=== PATIENT | male | born 2005 | race Caucasian/White ===

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

== ENCOUNTER → 2023-08-31 16:52 | Outpatient (BNVA) | payer OTHER, SELFPAY | PROVIDERS: PCP Family Medicine; Visit Provider Family Medicine | DX: R50.9 Fever, unspecified (principal); J02.9 Acute pharyngitis, unspecified | CPT/HCPCS: 87071; 87880 ==

== ENCOUNTER → 2024-08-08 15:27 | Outpatient (BNVA) | payer OTHER, SELFPAY | PROVIDERS: PCP Family Medicine; Visit Provider Nurse Practitioner Family | DX: R73.03 Prediabetes (principal); Z72.51 High risk heterosexual behavior | CPT/HCPCS: 80053; 80061; 83036; 84443; 85025; 87491; 87591; 87661 ==

== ENCOUNTER 2024-12-25 10:43 | Emergency (ER) | payer OTHER, SELFPAY ==
[2024-12-25 10:50] VITALS: BP 122/77; PULSE 124; RESP 18; TEMP 37.6; O2SAT 95; BMI 52.7
--- NOTE | 2024-12-25 11:18 | ED_ITS ---
HPI - Nausea/Vomiting/Diarrhea 2 General: Chief complaint: Nausea/Vomiting/Diarrhea Stated complaint: n/v/d/f, abd pain, bloody stool Time Seen by Provider: 12/25/24 10:47 History of Present Illness: Chief complaint is nausea and diarrhea. Patient states that on Tuesday patient started having watery diarrhea. Tuesday had 8 episodes of watery diarrhea and then 7 on Tuesday and 6 yesterday. Patient feels diarrhea may be gradually getting a little better. Patient states some generalized abdominal pain and bloating feeling after eating. Patient uncertain about fever. Patient states that patient may have mild fever. No dysuria. Vomited 1 time a small amount this morning. No black or bloody stools or black or bloody emesis however patient states that sometimes when wiping will get a little red blood on the toilet paper. Stools are sometimes green and sometimes yellow. No foreign travel or recent antibiotic use or history of C. difficile. Related Data Previous Rx's ?Medication ?Instructions ?Recorded azithromycin 500 mg tablet 1,000 mg (2 x 500 mg) PO ON CE 1 12/25/24 day #2 tabs ondansetron 4 mg disintegrating 4 mg PO Q8H PRN nausea and 12/25/24 tablet vomiting 4 days #10 tabs Allergies Allergy/AdvReac Type Severity Reaction Status Date / Time No Known Allergies Allergy Verified 12/25/24 10:05 [facility] ED 2 [facility]: Medical History (Updated 12/25/24 @ 13:18 by Steve Diana MD) Psychiatric care Pneumonia due to COVID-19 virus Obesity COVID-19 Social History Smoking and tobacco/nicotine status: never used tobacco/nicotine Alcohol intake: never Physical Exam 2 Narrative: EXAM NARRATIVE: Patient is alert oriented in no acute distress. Normal conjunctiva, pupils equal and reactive, neck is supple, clear speech, no rash on exposed areas, heart is regular rhythm with mild tachycardia, lung sounds are clear. Patient has some mild generalized abdominal tenderness. No guarding or rebound. Negative Venegas's. No focal McBurney point tenderness. Extremities warm well- perfused. No calf tenderness or pitting edema. Speech is clear. Shows ability to reason. No suicidal homicidal thoughts Course 2 Vital Signs: Vital signs: Vital Signs Temperature 99.6 F 12/25/24 10:50 Pulse Rate 108 H 12/25/24 12:00 Respiratory Rate 20 H 12/25/24 12:00 Blood Pressure 118/62 12/25/24 12:00 Pulse Oximetry 95 12/25/24 12:00 Oxygen Delivery Me thod Room Air 12/25/24 10:50 MDM - Nausea/Vomiting/Diarrhea Medical Decision Making Patient sitting up alert talkative in no acute distress. Patient has temperature in the 99's here and mildly tachycardic although in the room heart rate was 105. Patient initially refused IV and declined labs. Patient however has some generalized abdominal tenderness has some mild tachycardia and mild temperature elevation and I recommended that we do IV fluid and check labs. After second time discussing with the patient patient agreed and I ordered 1 L normal saline IV fluid bolus CBC CMP and lipase. Patient denies urinary symptoms. Denies substance abuse. Patient states they have a history of migraines and had a headache on Tuesday but no headache since. Denies trauma or injury. Denies recent antibiotic use foreign travel or bad food or water exposure or known sick contact. Patient denies having any medical problems other than depression and anxiety. Patient's abdominal exam is benign with generalized symptoms. Infectious diarrhea most probable cause, infectious colitis also considered with the generalized abdominal pain and tenderness. Patient has no focal right lower quadrant tenderness or pain to suggest acute appendicitis and clearly has significant diarrheal component. I advised patient balance risk and benefit of antibiotic use and importance of hydration and checking electrolytes for dehydration and electrolyte imbalance and importance of oral hydration including electrolytes. Patient wants continued outpatient management. I advised limits of ED evaluation and signs symptoms of worsening watch and return for. I ordered Zofran 4 mg IV and acetaminophen 650 mg p.o. Advised to come back if worsening or concerning abdominal pain, black or bloody stools, vomiting blood, getting dehydrated or weak, unable to keep up on electrolytes and fluid, persistent symptoms or any worsening. Patient's diarrhea has gradually been improving each day has had little bit less. Advised I will prescribe 1 g of azithromycin to take tomorrow if does not continue improving. Advised we will also prescribe Zofran as needed for nausea. Patient alert talkative no acute distress in agreement with plan after informed discussion and understands signs and symptoms of worsening to watch and return for. Patient mother now here. Patient states feeling much better. Patient was sleeping and wakes to voice. White count is elevated. Bicarb low. Potassium was not significant low. Lipase not elevated. I discussed with mother at length signs symptoms of worsening watch and return for limits of ED evaluation broad differential. I discussed doing CT scan versus observation and at this point based on exam history and symptoms reasonable to continue oral hydration with 1 g of azithromycin tomorrow if the diarrhea is not improving. However with the pain advised to come back if worsening pain or if patient develops vomiting or unable to keep fluid down or increased weakness or bloody stools or any worsening. Patient and mother expressed understanding and agreement with plan. Patient states feeling improved and ready to go. Lab Data 12/25/24 11:37 12/25/24 11:37 Laboratory Results WBC 14.34 10^3/uL (3.29-11.43) H 12/25/24 11:37 RBC 4.98 10^6/uL (3.85-5.65) 12/25/24 11:37 Hgb 13.80 g/dL (11.27-16.99) 12/25/24 11:37 Hct 42.5 % (37-53) 12/25/24 11:37 MCV 85.3 fl (82-101) 12/25/24 11:37 MCH 27.7 pg (27-33) 12/25/24 11:37 MCHC 32.5 g/dL (30-55) 12/25/24 11:37 RDW 12.8 % (12.1-15.1) 12/25/24 11:37 Plt Count 277 10^3/cmm (157-399) 12/25/24 11:37 MPV 9.0 fL (7.4-10.4) 12/25/24 11:37 Neut % (Auto) 88.9 % 12/25/24 11:37 Lymph % (Auto) 5.3 % 12/25/24 11:37 [place] % (Auto) 5.2 % 12/25/24 11:37 Eos % (Auto) 0.0 % 12/25/24 11:37 Baso % (Auto) 0.2 % 12/25/24 11:37 Neut # (Auto) 12.75 10^3/uL (1.8-7.7) H 12/25/24 11:37 Lymph # (Auto) 0.8 10^3/uL (0.8-4.8) 12/25/24 11:37 [place] # (Auto) 0.7 10^3/uL (0.2-0.9) 12/25/24 11:37 Eos # (Auto) 0.0 10^3/uL (0.0-0.8) 12/25/24 11:37 Baso # (Auto) 0.0 10^3/uL (0.0-0.1) 12/25/24 11:37 Nucleated RBC % (auto) 0 % 12/25/24 11:37 Nucleated RBCs # 0.0 /100WBC 12/25/24 11:37 Sodium 135 mmol/L (136-145) L 12/25/24 11:37 Potassium 4.2 mmol/L (3.5-5.1) 12/25/24 11:37 Chloride 101 mmol/L (98-107) 12/25/24 11:37 Carbon Dioxide 20 mmol/L (22-29) L 12/25/24 11:37 Anion Gap 18.2 (5-19) 12/25/24 11:37 BUN 7 mg/dL (6-20) 12/25/24 11:37 Creatinine 0.7 mg/dL (0.7-1.2) 12/25/24 11:37 GFR Calculation 142.4 mL/min (90-130) H 12/25/24 11:37 Glucose 106 mg/dL (65-115) 12/25/24 11:37 Calculated Osmolality 278 mOsm/kg (285-295) L 12/25/24 11:37 Calcium 9.2 mg/dL (8.5-10.5) 12/25/24 11:37 Total Bilirubin 0.3 mg/dL (0.15-1.2) 12/25/24 11:37 AST 14 U/L (0-40) 12/25/24 11:37 ALT 17 U/L (0-41) 12/25/24 11:37 Alkaline Phosphatase 54 U/L (40-130) 12/25/24 11:37 Total Protein 7.5 g/dL (6.6-8.7) 12/25/24 11:37 Albumin 4.3 g/dL (3.5-5.2) 12/25/24 11:37 Globulin 3.2 g/dL (1.3-4.6) 12/25/24 11:37 Lipase 12 U/L (13-60) L 12/25/24 11:37 All radiology interpretation(s) finalized by discharge Discharge Plan Discharge Patient Disposition: Home Clinical Impression: Acute diarrhea Condition: Stable Prescriptions: New azithromycin 500 mg tablet 1,000 mg PO ONCE 1 Days Qty: 2 0RF ondansetron 4 mg tablet,disintegrating 4 mg PO Q8H PRN (Reason: nausea and vomiting) 4 Days Qty: 10 0RF Discharge Orders: Discharge ED (Routine); Ordered 12/25/24 Ordered By: Steve Diana Referrals: Rubina Crawford FNP-C [Primary Care Provider, Family Practice] Discharge Diet: Advance as tolerated Activity Restrictions/Additional Instructions: No work until diarrhea has resolved for a full 24 hours. Make sure to drink plenty of fluids including electrolytes as discussed. Please return to the emergency department if not getting better, any worsening pain, fever, vomiting, black or bloody stools, increased weakness or fatigue, any worse or concerns. If you are not improving please come back for recheck. If your diarrhea is not improving by tomorrow take the 1 time dose antibiotic. If not getting better or any worse please return to emergency room for recheck. Please follow-up with your doctor on your test results and for recheck in 2 to 3 days Print Language: [place]ian Coding Level of Care Code ED [employer] for Chani Stratton
[2024-12-25 11:46] LABS: Basophils % 0.2 %; Hematocrit 42.5 % (37-53); Lymphocytes # 0.8 10^3/uL (0.8-4.8); Lymphocytes % 5.3 %; Mean Corpuscular HGB Conc 32.5 g/dL (30-55); Mean Corpuscular Hemoglobin 27.7 pg (27-33); Mean Corpuscular Volume 85.3 fl (82-101); Monocytes # 0.7 10^3/uL (0.2-0.9); Monocytes % 5.2 %; Neutrophils # 12.75 10^3/uL (1.8-7.7); Neutrophils % 88.9 %; Nucleated Red Blood Cells % 0 %; Platelet Count 277 10^3/cmm (157-399); Red Blood Count 4.98 10^6/uL (3.85-5.65); Red Cell Distribution Width 12.8 % (12.1-15.1); White Blood Count 14.34 10^3/uL (3.29-11.43)
[2024-12-25 12:00] VITALS: BP 118/62; PULSE 108; RESP 20; O2SAT 95
[2024-12-25] MEDS: sodium chloride 0.9% 1,000 ML 999 ML IV (12:09)
[2024-12-25 12:11] LABS: Alanine Aminotransferase 17 U/L (0-41); Albumin Level 4.3 g/dL (3.5-5.2); Alkaline Phosphatase 54 U/L (40-130); Anion Gap 18.2 (5-19); Aspartate Amino Transferase 14 U/L (0-40); Blood Urea Nitrogen 7 mg/dL (6-20); Calcium 9.2 mg/dL (8.5-10.5); Carbon Dioxide 20 mmol/L (22-29); Chloride 101 mmol/L (98-107); Creatinine Clr Calc Pharmacy 284.5488; Globulin 3.2 g/dL (1.3-4.6); Glomerular Filtration Rate 142.4 mL/min (90-130); Glucose 106 mg/dL (65-115); Lipase 12 U/L (13-60); Osmolality Calculated 278 mOsm/kg (285-295); Potassium 4.2 mmol/L (3.5-5.1); Sodium 135 mmol/L (136-145); Total Bilirubin 0.3 mg/dL (0.15-1.2); Total Protein 7.5 g/dL (6.6-8.7)
[2024-12-25] MEDS: ondansetron 2 mg/ML SDV 2 mL 4 MG IVP (12:11)
[2024-12-25] MEDS: acetaminophen 325 mg Tablet 650 MG PO (12:14)
[2024-12-25 14:29] VITALS: BP 103/65; PULSE 87; O2SAT 95
== END 2024-12-25 14:32 | disposition home or self-care (01) ==
PROVIDERS: Emergency Provider Emergency Medicine; PCP Nurse Practitioner Family
DX: R19.7 Diarrhea, unspecified (principal)
CPT/HCPCS: 80053; 83690; 85025; 87045; 87427; 87449; 96374; 99284; J2405; J7030; J9999

== ENCOUNTER 2025-02-15 22:17 | Inpatient (IN) | payer OTHER, MEDICAID, SELFPAY ==
--- OUTSIDE RECORDS SUMMARY | 2013-05-19 19:00 | XMS_ITS | Continuity of Care Document ---
Author Organization [facility] Address [address] [place] [id number] Phone Care Team Providers Care Merchandising Team Lead Name Role Phone Provider, [facility] Unavailable Unavailable Advance Directives Directive Yes / No Effective Date File Name No Information Encounters Encounter Description Practice Location Reason(s) For Visit Diagnoses Date Provider [facility], [address] [place] [address], [id number], tel:[phone] No Information 2012 Provider [facility]. . [facility], [address] [place] [address], [id number], tel:[phone] [facility] Location NEED FOR PROPHYLACTIC VACCINATOBESITY (UNSPECIFIED - BMI 30PHARYNGITIS, VIRAL ACUTEALLERGIC RHINITIS NOS 2010 Provider [facility]. . [facility], [address] [place] [address], [id number], tel:[phone] [facility] Location No Information 2010 Provider [facility]. . Family History Family Member Type Diagnosis Age At Onset No Information Immunizations Vaccine Date Status Comments Influenza virus vaccine, live, for intranasal use administered Note: [facility] conversion as of 05/20/2013 ; Source: New Immunization Record Payers Payer name Insurance type Covered alliance party ID Authoriza tion(s) No Information Social History Type Description Quantity Date Captured Comments Sex Male Smoking Status No Information Chief Complaint And Reason For Visit No Information History Of Present Illness Encounter Date Complaint History Of Prese nt Illness No Information Instructions Date Instruction Additional Infor mation No Information Assessments Type Assessment Date No Information
[2025-02-15 22:20] VITALS: BP 138/87; PULSE 108; RESP 16; TEMP 36.9; O2SAT 93; BMI 48.7
--- NOTE | 2025-02-15 22:52 | W.ED.PSYCHS ---
HPI - Psych General: Chief Complaint: Psychiatric Symptoms Stated Complaint: mhe Time Seen by Provider: 02/15/25 22:19 History of Present Illness: 19-year-old female presents to the ED with a mental health crisis. Patient reports feeling overwhelmed due to living in what she describes as a hostile environment with her cousin's family. She states both of her parents are dying from heart failure, and she has been trying to save money to move out. Patient describes a situation where her cousin's children frequently scream in her vicinity, and the cousin's constantly talks negatively about her. This has created significant stress over the past two weeks. Tonight, patient reached a breaking point and engaged in self-harm behavior. She reports hitting her forehead against a support pole multiple times, resulting in a visible bump on her forehead. She also cut her left hand with a cooking knife. Patient explicitly states she was not actively suicidal tonight but came to the ED before reaching that point. She denies current suicidal ideation or plan but does report a previous suicide attempt at age 6. Patient admits to marijuana use earlier today before everything went downhill. She has been non-compliant with her antidepressant medication for approximately two weeks. Related Data Allergies Allergy/AdvReac Type Severity Reaction Status Date / Time No Known Allergies Allergy Verified 02/15/25 22:33 [facility] ED [facility]: Medical History (Updated 02/16/25 @ 00:39 by Remi Manzano MD) Psychiatric care Pneumonia due to COVID-19 virus Obesity COVID-19 Social History Smoking and tobacco/nicotine status: never used tobacco/nicotine Alcohol intake: never Physical Exam Narrative: EXAM NARRATIVE: General: Alert, oriented, in mild distress due to mental health crisis. HEENT: Head normocephalic with visible contusion/bump on forehead from self-reported trauma. Mucous membranes moist. Neck: Supple Respiratory: No increased work of breathing, No wheezing Cardiac: Regular rate and rhythm, 2+ pulses in all extremities Abdomen: Soft, non-distended, no rebound or guarding Extremities: superficial laceration noted on dorsum of left hand from self-harm with cooking knife, no active bleeding Neuro: Cranial nerves grossly intact, no focal motor or sensory deficits noted Psychiatric: Anxious affect, coherent thought process, denies current suicidal ideation Course Vital Signs: Vital signs: Vital Signs Temperature 98.4 F 02/15/25 22:20 Pulse Rate 108 H 02/15/25 22:20 Respiratory Rate 16 02/15/25 22:20 Blood Pressure 138/87 02/15/25 22:20 Pulse Oximetry 93 02/15/25 22:20 Oxygen Delivery Me thod Room Air 02/15/25 22:20 MDM - Psych Medical Decision Making ROS: Constitutional: Denies fever, chills, or fatigue. Psychiatric: Positive for depression and anxiety. Reports feeling overwhelmed and engaging in self-harm behavior. Denies current suicidal ideation. Neurological: Denies headache, dizziness, or loss of consciousness. All other systems reviewed and negative. MEDICATIONS AND ALLERGIES: - Meds: Unspecified antidepressant (non-compliant for past 2 weeks) - Allergies: No known drug allergies PAST HISTORICAL DATA: - PMH: Autism, Depression - PSH: None reported - Social: Occasional marijuana use, rare cigarette use when stressed, occasional alcohol use ( once a weekend but none in months) - Psychiatric: Previous suicide attempt at age 6 INITIAL IMPRESSION AND PLAN: Given the history and presentation, the primary working diagnosis is acute mental health crisis with self-harm behavior. Additional considerations include major depressive disorder, adjustment disorder, and autism spectrum disorder with maladaptive coping mechanisms. Based on this initial impression I will order: 1. Laboratory studies including CBC, CMP, and toxicology screen 2. Tetanus prophylaxis update 3. Psychiatric consultation for evaluation and admission consideration 4. Wound care for left hand laceration 5. Close monitoring for safety CONSIDERED BUT NOT PERFORMED: Head CT CONSIDERED but NOT DONE due to no loss of consciousness, no altered mental status, and patient's ability to provide clear history of self-inflicted mechanism. FINAL IMPRESSION: Based on all the above, my clinical impression is most compatible with acute mental health crisis with self-harm in the setting of underlying depression and autism spectrum disorder. The clinical picture is not currently suggestive of active suicidality, psychosis, or substance-induced psychiatric disorder. Although other conditions were also considered, they were deemed unlikely based on the clinical information available. CLINICAL DISPOSITION: The patient's current condition is stable but requires psychiatric intervention in my estimation and the most appropriate and indicated disposition at this time is admission to inpatient psychiatric unit. Patient requires inpatient psychiatric care due to recent self-harm behavior, ongoing mental health crisis, and inadequate coping mechanisms. The patient's current living situation appears to be a significant stressor, and she lacks appropriate support systems to safely manage her condition as an outpatient at this time. Additionally, the patient has been non-compliant with her antidepressant medication, which likely contributed to her current crisis. I spoke with Dr. Tanner with the psychiatric unit who accepts patient to the inpatient psychiatric unit. RISK STRATIFICATION AND CLINICAL DECISION RULES APPLIED: SAD PERSONS Scale - Moderate Risk. Patient has several risk factors for self-harm including depression, previous suicide attempt (albeit remote), and recent psychosocial stressors. This supported the decision for inpatient psychiatric admission. CASE SUMMARY: 19-year-old female with history of autism and depression presented to the ED with acute mental health crisis and self-harm behavior. Patient reported overwhelming stress from living situation, leading to hitting her head against a pole and cutting her hand with a knife. She denied active suicidal ideation but came to the ED before reaching that point. Laboratory studies showed no acute abnormalities. Patient has been non-compliant with antidepressant medication for two weeks. After psychiatric consultation with Dr. Tanner, patient was accepted for admission to inpatient psychiatric unit for stabilization, medication management, and development of appropriate coping strategies. Lab Data I reviewed the patient's lab results. 02/15/25 23:18 02/15/25 23:18 Laboratory Results WBC 15.83 10^3/uL (3.29-11.43) H 02/15/25 23:18 RBC 5.36 10^6/uL (3.85-5.65) 02/15/25 23:18 Hgb 14.40 g/dL (11.27-16.99) 02/15/25 23:18 Hct 45.7 % (37-53) 02/15/25 23:18 MCV 85.3 fl (82-101) 02/15/25 23:18 MCH 26.9 pg (27-33) L 02/15/25 23:18 MCHC 31.5 g/dL (30-55) 02/15/25 23:18 RDW 12.5 % (12.1-15.1) 02/15/25 23:18 Plt Count 314 10^3/cmm (157-399) 02/15/25 23:18 MPV 9.6 fL (7.4-10.4) 02/15/25 23:18 Neut % (Auto) 82.9 % 02/15/25 23:18 Lymph % (Auto) 10.6 % 02/15/25 23:18 Logan % (Auto) 5.6 % 02/15/25 23:18 Eos % (Auto) 0.3 % 02/15/25 23:18 Baso % (Auto) 0.3 % 02/15/25 23:18 Neut # (Auto) 13.14 10^3/uL (1.8-7.7) H 02/15/25 23:18 Lymph # (Auto) 1.7 10^3/uL (0.8-4.8) 02/15/25 23:18 Logan # (Auto) 0.9 10^3/uL (0.2-0.9) 02/15/25 23:18 Eos # (Auto) 0.0 10^3/uL (0.0-0.8) 02/15/25 23:18 Baso # (Auto) 0.1 10^3/uL (0.0-0.1) 02/15/25 23:18 Nucleated RBC % (auto) 0 % 02/15/25 23:18 Nucleated RBCs # 0.0 /100WBC 02/15/25 23:18 Sodium 137 mmol/L (136-145) 02/15/25 23:18 Potassium 3.8 mmol/L (3.5-5.1) 02/15/25 23:18 Chloride 99 mmol/L (98-107) 02/15/25 23:18 Carbon Dioxide 20 mmol/L (22-29) L 02/15/25 23:18 Anion Gap 21.8 (5-19) H 02/15/25 23:18 BUN 13 mg/dL (6-20) 02/15/25 23:18 Creatinine 0.9 mg/dL (0.7-1.2) 02/15/25 23:18 GFR Calculation 106.5 mL/min (90-130) 02/15/25 23:18 Glucose 105 mg/dL (65-115) 02/15/25 23:18 Calculated Osmolality 284 mOsm/kg (285-295) L 02/15/25 23:18 Calcium 9.5 mg/dL (8.5-10.5) 02/15/25 23:18 Total Bilirubin 0.4 mg/dL (0.15-1.2) 02/15/25 23:18 AST 20 U/L (0-40) 02/15/25 23:18 ALT 28 U/L (0-41) 02/15/25 23:18 Alkaline Phosphatase 63 U/L (40-130) 02/15/25 23:18 Total Protein 8.0 g/dL (6.6-8.7) 02/15/25 23:18 Albumin 4.5 g/dL (3.5-5.2) 02/15/25 23:18 Globulin 3.5 g/dL (1.3-4.6) 02/15/25 23:18 Urine Color Dark yellow (Yellow) A 02/15/25: Urine Appearance Cloudy (CLEAR) A 02/15/25: Urine pH 5.5 (5-7) 02/15/25 22:32 Ur Specific [place] 1.035 (1.005-1.030) H 02/15/25 22: Urine Protein 1+ (Negative) A 02/15/25 22: Urine Glucose (UA) Negative (Normal) 02/15/25 22:32 Urine Ketones 1+ (Negative) H 02/15/25 22:32 Urine Blood Negative (Negative) 02/15/25: Urine Nitrate Negative (Negative) 02/15/25: Urine Bilirubin 1+ (Negative) H 02/15/25 22:32 Urine Urobilinogen 1.0 mg/dL (Negative) 02/15/25 22:32 Ur Leukocyte Esterase Negative (Negative) 02/15/25 22: Urine RBC 0-2 /hpf (0-2) 02/15/25 22:32 Urine WBC 0-5 /hpf (0-5) 02/15/25 22:32 Ur Squamous Epith Cells 0-5 /hpf (0-5) 02/15/25 22: Amorphous Sediment Not Reportable 02/15/25 22: Urine Bacteria None seen /hpf (NONE) 02/15/25 22:32 Hyaline Casts 10.32 /lpf 02/15/25 22:32 Coarse Granular Casts 0-4 /lpf H 02/15/25 22:32 Urine Mucus 1+ /hpf 02/15/25 22:32 Salicylates < 0.3 mg/dL (3-10) L 02/15/25 23:18 Acetaminophen < 5.0 ug/mL (10-30) L 02/15/25 23:18 Ethyl Alcohol < 10 mg/dL (0-10) 02/15/25 23:18 No radiology studies performed this visit Discharge Plan Discharge Patient Disposition: Admitted As Inpatient Clinical Impression: Autism, Depression, Mood disorder Condition: Stable Coding Level of Care Code ED Program Assistant for Chani Stratton
--- NOTE | 2025-02-15 23:05 | ECG_ITS ---
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
[2025-02-15 23:23] LABS: Hematocrit 45.7 % (37-53); Hemoglobin 14.40 g/dL (11.27-16.99); Mean Corpuscular HGB Conc 31.5 g/dL (30-55); Mean Corpuscular Hemoglobin 26.9 pg (27-33); Mean Corpuscular Volume 85.3 fl (82-101); Nucleated Red Blood Cells % 0 %; Platelet Count 314 10^3/cmm (157-399); Red Blood Count 5.36 10^6/uL (3.85-5.65); White Blood Count 15.83 10^3/uL (3.29-11.43)
[2025-02-15] MEDS: tetanus-dipt-pertussis 0.5 mL SDV IM (23:32)
[2025-02-15 23:54] LABS: Glucose Urine UA Negative (Normal); Nitrate Urine Negative (Negative)
[2025-02-15 23:55] LABS: Alanine Aminotransferase 28 U/L (0-41); Albumin Level 4.5 g/dL (3.5-5.2); Alkaline Phosphatase 63 U/L (40-130); Anion Gap 21.8 (5-19); Aspartate Amino Transferase 20 U/L (0-40); Blood Urea Nitrogen 13 mg/dL (6-20); Calcium 9.5 mg/dL (8.5-10.5); Carbon Dioxide 20 mmol/L (22-29); Chloride 99 mmol/L (98-107); Creatinine Clr Calc Pharmacy 217.1860; Globulin 3.5 g/dL (1.3-4.6); Glucose 105 mg/dL (65-115); Osmolality Calculated 284 mOsm/kg (285-295); Potassium 3.8 mmol/L (3.5-5.1); Sodium 137 mmol/L (136-145); Total Protein 8.0 g/dL (6.6-8.7)
[2025-02-15 23:59] LABS: Add Urine Microscopic? YES; Universal Test for UA Present (0)
[2025-02-16 00:04] LABS: Acetaminophen < 5.0 ug/mL (10-30); Alcohol Level < 10 mg/dL (0-10); Salicylate < 0.3 mg/dL (3-10)
[2025-02-16 00:04] LABS: Specific Gravity, Urine 1.035 (1.005-1.030)
[2025-02-16 00:36] VITALS: BP 137/86; PULSE 95; RESP 18; TEMP 36.7; O2SAT 97
[2025-02-16 02:08] VITALS: BMI 45.2
--- NOTE | 2025-02-16 03:36 | PC.ADMIT ---
213 [facility] Admission Note: The patient,Bear Pat (Grace),19 y/o, was given written information regarding hospital policies, unit procedures and contact persons. Patient's smoking status: never smoked. Vital Signs - 8 hr 02/15/25 22:20 02/16/25 00:36 02/16/25 02:08 Temperature 98.4 F 98.1 F Pulse Rate 108 H 95 Respiratory Rate 16 18 Blood Pressure 138/87 137/86 Pulse Oximetry 93 97 Oxygen Delivery Method Room Air Room Air Room Air Ml is a 19 y/o male to female transition who presents to the hospital after having a meltdown and feeling hostile for several weeks. Patient states I snapped and started hitting my head. Patient verbalized that her cousins was telling small children to harass and torture her. She states that these children were yelling and laughing at her. She states this was very upsetting. She internalized these feelings and did not act on her anger. She endorses cutting bilateral arms to make herself not feel the pain. She reports at 6 y/o she attempted suicide by hanging herself with a bedsheet from her bed frame. She endorses anxiety rated 8/10, depression rated 8/10. She currently denies SI/HI/AVH. She reports her mother and father are still living and are currently dying from heart failure. She reports a family psychiatric history significant for an uncle who purposely killed himself while acting on a delusion. Patient is alert and oriented times 4. Speeh is clear. She is alert and oriented times four. She appears disheveled. She is cooperative with the admission process. She endores using marijuana twice in the last month. Her thoughts are linear. Patient request for medication to help with insomnia and anxiety. She was oriented to unit norms. All questions were answered.
--- NOTE | 2025-02-16 06:32 | PC.NURSE ---
vs not completed per charge nurse, resp 16
--- NOTE | 2025-02-16 11:29 | P.NPUHP_ITS ---
Providers/Chief Complaint 2 Admitting Physician: Jose Maurer MD Primary Care Provider: RACHAEL Le Chief Complaint: mhe HPI NPU History of Present Illness Bear Pat (Grace) is a 19 year old trans female who presented to the emergency department with superficial cuts to her left wrist with a cooking knife. The patient was admitted to the neuropsychiatric unit for further evaluation and treatment. The patient had reported that she had been overwhelmed due to a hostile living environment with her cousins family. She reports that she had been living with her cousin since the end of December 2024 and reports that over the past few weeks she has felt as if her cousins was telling the small children that she had to harass and torture her by yelling at her loudly and knocking on the door. She reports that she has been diagnosed with autism and has difficulties with loud noises and often feels as if she was being targeted by them. She she reports that she finally snapped and stated that she began to hit her head. She reports that she has been depressed for several months and reports a past history of depressive episodes. She reports that recently she has had low energy, decreased motivation, increased feelings of hopelessness, occasional suicidal thoughts, and depressed mood nearly every day. She reports that she has been less interested in self-care and has not been maintaining appropriate hygiene over the past few weeks. She reports that she needs to engage in therapy as she struggles with managing her anxiety. She reports at times having struggles with getting to sleep. She reports a long history of symptoms suggestive of autism including difficulties with processing, rigid stereotypic thinking and adherence to specific rules and rituals, difficulties with managing social cues, and a history of stereotypic rocking behavior. She had reported a long history of difficulties engaging in socially appropriate conversation with others. She reports that she has gone several days in the past without showering and reports having particular anxiety as she often obsesses about specific details. She describes often worrying about many things in general and states that it is hard to get those worries out of her mind. She reports having some struggles with being in crowds. She endorses having struggles with concentration and struggles with decision-making. She denied any history of elvis. She denied any history of psychosis. She reports that she had been traumatized by her experience in receiving psychiatric services stating that she often felt that her parents had used medication as a form of controlling her behavior. She denies any history of chronic thoughts of self injury. She endorses some symptoms of social anxiety disorder as well. Past psychiatric history: She has a history of 3 previous inpatient psychiatric hospitalizations under the age of [age] years old in [place]. She reports having been diagnosed with autism as a youngster. She had multiple suicide attempts up until the age of 12 involving overdose or attempting to hang herself at a young age. She reports several previous trials on medications with Zoloft having previously been tried recently in October 2024 under the care of Dr. Lobo. She had previously received psychotherapy use but is currently not receiving any psychotherapy. Substance abuse history: None reported Medical history: Obesity, history of COVID-19 related pneumonia Surgical history: None Allergies: No known drug allergies Current medications: None Social history: The patient had a history of speech delay as she had received speech and language therapy in elementary school. SHe was diagnosed with autism at the age of 7. She had received an IEP in high school but graduated with a regular diploma. She had one half set semester of college but dropped out. She was raised by her biological parents. Her father was before and she has a half sister and a full younger sister. She had grown up living with her biological parents. She currently lives with her cousin in [facility] and her parents live in [facility]. She has a boyfriend that she communicates with in [place] virtually. She had been working as a [employer]TERN[employer] at a [employer] until she lost her job 3 weeks ago. She had reported experiencing some significant bullying when she was younger and reported her hospitalizations were somewhat traumatic for her although she denied any overt sexual, physical, or emotional abuse. Meds NPU Allergies Allergy/AdvReac Type Severity Reaction Status Date / Time No Known Allergies Allergy Verified 02/15/25 22:33 PFSH NPU 2 PFSH: Medical History (Updated 02/16/25 @ 11:52 by Jose Maurer MD) Psychiatric care Pneumonia due to COVID-19 virus Obesity COVID-19 Social History Smoking and tobacco/nicotine status: never used tobacco/nicotine Alcohol intake: never Mental Status Exam 2 MSE Comments: Patient is a 19-year-old obese trans female who appeared pleasant and cooperative on interview. She was alert and oriented to person, place, time, and situation. Her hygiene was poor. There was evidence of some stereotypic rocking behavior during the interview. Her speech was monotone in quality and very [id number] with little inflection in her voice and normal volume. Her eye contact was fair during the examination. There was evidence of moderate psychomotor retardation. Her mood was described as depressed. Her affect was flat. Her thought process was linear, logical, and goal-directed. Her thought content revealed no evidence of active homicidal ideation and endorsed passive suicidal ideation with no active plan. There was no evidence of delusional thinking. She did not appear to be responding to internal stimuli. Her recent and remote memory were good. Her insight is poor. Her judgment was poor. Her impulse control appeared limited. Vitals/I&O/Wt Last Vital Signs Temp 98.1 F 02/16/25 00:36 Pulse 95 02/16/25 00:36 Resp 18 02/16/25 00:36 BP 137/86 02/16/25 00:36 Pulse Ox 97 02/16/25 00:36 O2 Del Method Room Air 02/16/25 02:08 02/15/25 02/16/25 02/16/25 22:59 06:59 14:59 Intake Total 0 / 0 Balance 0 / 0 Weight last 48 hrs Weight 159.778 kg Weight 172.365 kg Data NPU 02/15/25 23:18 02/15/25 23:18 A&P Assessment and plan 1. Major depressive disorder, recurrent severe without psychotic features: 2. Generalized anxiety disorder: 3. Autistic spectrum disorder: Plan: 19-year-old trans female with a history of recurrent depression, generalized anxiety disorder and autistic disorder admitted with suicidal ideation with an episode of self injury currently on no medications and not receiving psychotherapy. #1.? Engage patient in individual milieu and group therapy. #2?? Recommend sober living treatment at the highest level of care to which the patient is willing to commit #3??? Will restart low dose of zoloft to target depression. Patient would very likely benefit from weekly psychotherapy as soon as available along with case management services. #4?? TO-15 minute checks? #5?? Will attempt to gather collateral information PDMP PDMP Reviewed: Not Reviewed Involuntary Hold Information 2 Hold Status: Date/Time Hold Expires: voluntary Attestations NPU 2 Medical Necessity Statement*: Inpatient hospitalization is medically necessary and deemed to be the clinically appropriate intervention at this time. Medications will be adjusted and initiated as indicated.? The patient will be hospitalized for at least 2 midnights.? The patient?s likely length of stay is 4-6 days. ? Coding Level of Care Code Acute Code for Chg Fwd Diagnoses Major depressive disorder, recurrent severe without psychotic features F33.2 Generalized anxiety disorder F41.1 Autistic spectrum disorder F84.0
[2025-02-16 14:00] VITALS: BP 118/61; PULSE 69; RESP 16; O2SAT 94
[2025-02-16 21:48] VITALS: BP 108/75; PULSE 90; RESP 18; TEMP 36.7; O2SAT 95
[2025-02-17 06:00] VITALS: BP 113/64; PULSE 76; RESP 19; TEMP 36.5; O2SAT 98; BMI 45.0
--- NOTE | 2025-02-17 12:27 | P.NPUPN_ITS ---
Subjective NPU 2 Subjective: The patient is a 19-year-old trans female admitted with suicidal ideation with a history of generalized anxiety disorder, major depressive disorder, and autistic spectrum disorder. The patient reported that she was feeling better and stated that she had felt calmer. She had reported no feelings of hopelessness and reported having no suicidal thoughts at this time. She had reported that she continued to have intrusive thoughts about her cousin's family maliciously targeting her by yelling and screaming at her. She had reported having difficulties with finding ways to relieve tension. She reported struggles with changes in routine. She was quiet but redirectable on the milieu. She had reported struggles with motivation but was able to shower yesterday and engage in her self-care. Mental Status Exam 2 MSE Comments: Patient is a 19-year-old obese trans female who appeared pleasant and cooperative on interview. She was alert and oriented to person, place, time, and situation. Her hygiene was improved today. There was no evidence of stereotypies today. Her speech was monotone in quality and very [id number] with little inflection in her voice and normal volume. Her eye contact was fair during the examination. There was evidence of moderate psychomotor retardation. Her mood was described as depressed. Her affect was flat. Her thought process was linear, logical, and goal-directed. Her thought content revealed no evidence of active homicidal ideation and no suicidal ideation today. There was no evidence of delusional thinking. She did not appear to be responding to internal stimuli. Her recent and remote memory were good. Her insight is poor. Her judgment was poor. Her impulse control appeared limited. Vitals/I&O/Wt Last Vital Signs Temp 97.7 F 02/17/25 06:00 Pulse 76 02/17/25 06:00 Resp 19 H 02/17/25 06:00 BP 113/64 02/17/25 06:00 Pulse Ox 98 02/17/25 06:00 O2 Del Method Room Air 02/17/25 06:00 02/16/25 02/17/25 02/17/25 22:59 06:59 14:59 Intake Total 0 / 0 0 / 0 Balance 0 / 0 0 / 0 Weight last 48 hrs Weight 159.211 kg Weight 159.778 kg Weight 172.365 kg Data NPU 02/15/25 23:18 02/15/25 23:18 A&P Assessment and plan 1. Major depressive disorder, recurrent severe without psychotic features: 2. Generalized anxiety disorder: 3. Autistic spectrum disorder: Plan: 19-year-old trans female with a history of recurrent depression, generalized anxiety disorder and autistic disorder admitted with suicidal ideation with an episode of self injury currently on no medications and not receiving psychotherapy. #1.? Engage patient in individual milieu and group therapy. #2?? Recommend sober living treatment at the highest level of care to which the patient is willing to commit #3??? Continue Zoloft 50mg daily. Patient would very likely benefit from weekly psychotherapy as soon as available along with case management services. #4?? TO-15 minute checks? #5?? Will attempt to gather collateral information PDMP PDMP Reviewed: Not Reviewed Involuntary Hold Information 2 Hold Status: Date/Time Hold Expires: voluntary Attestations NPU 2 Medical Necessity Statement*: Inpatient hospitalization is medically necessary and deemed to be the clinically appropriate intervention at this time. Medications will be adjusted and initiated as indicated.? ? The patient?s likely length of stay is 2-3 days. ? Coding Level of Care Code Acute Code for g Fwd Diagnoses Major depressive disorder, recurrent severe without psychotic features F33.2 Generalized anxiety disorder F41.1 Autistic spectrum disorder F84.0
[2025-02-17 14:00] VITALS: BP 169/93; PULSE 89; RESP 17; TEMP 36.9; O2SAT 94
[2025-02-17 22:00] VITALS: BP 147/87; PULSE 101; RESP 17; TEMP 37.2; O2SAT 96
[2025-02-18 06:00] VITALS: BP 119/57; PULSE 72; RESP 18; TEMP 36.7; O2SAT 94
--- NOTE | 2025-02-18 12:19 | P.NPUPN_ITS ---
Subjective NPU 2 Subjective: The patient is a 19-year-old trans female admitted with suicidal ideation with a history of generalized anxiety disorder, major depressive disorder, and autistic spectrum disorder. The patient had continues to report some anxiety. She had reported not having as many negative thoughts. She had reported no side effects from her Zoloft at this time. She had continued to report that she felt motivated to begin therapy. She had not endorsed any history of recent gender dysphoria. She had reported continuing to have recurring thoughts about the events that have brought her here and stated that she would not go back to living with her cousins family. She had been able to attend groups without any significant issue. Mental Status Exam 2 MSE Comments: Patient is a 19-year-old obese trans female who appeared pleasant and cooperative on interview. She was alert and oriented to person, place, time, and situation. Her hygiene was improved today. There was no evidence of stereotypic movements noted. Her speech was monotone in quality and very [id number] with little inflection in her voice and normal volume. Her eye contact was fleeting today. There was evidence of mild psychomotor retardation. Her mood was described as depressed. Her affect was flat. Her thought process was linear, logical, and goal-directed. Her thought content revealed no evidence of active homicidal ideation and no suicidal ideation today. There was no evidence of delusional thinking. She did not appear to be responding to internal stimuli. Her recent and remote memory were good. Her insight is poor. Her judgment was poor. Her impulse control appeared to be improving. Vitals/I&O/Wt Last Vital Signs Temp 98.0 F 02/18/25 06:00 Pulse 72 02/18/25 06:00 Resp 18 02/18/25 06:00 BP 119/57 02/18/25 06:00 Pulse Ox 94 02/18/25 06:00 O2 Del Method Room Air 02/18/25 06:00 02/17/25 02/18/25 02/18/25 22:59 06:59 14:59 Intake Total 0 / 0 Balance 0 / 0 Weight last 48 hrs Weight 159.211 kg Data NPU 02/15/25 23:18 02/15/25 23:18 A&P Assessment and plan 1. Major depressive disorder, recurrent severe without psychotic features: 2. Generalized anxiety disorder: 3. Autistic spectrum disorder: Plan: 19-year-old trans female with a history of recurrent depression, generalized anxiety disorder and autistic disorder admitted with suicidal ideation with an episode of self injury currently on no medications and not receiving psychotherapy. #1.? Engage patient in individual milieu and group therapy. #2?? Recommend sober living treatment at the highest level of care to which the patient is willing to commit #3??? Continue Zoloft 50mg daily. Patient would very likely benefit from weekly psychotherapy as soon as available along with case management services. #4?? TO-15 minute checks? #5?? Will attempt to gather collateral information. Disposition may be back to parents instead of cousin's home. PDMP PDMP Reviewed: Not Reviewed Involuntary Hold Information 2 Hold Status: Date/Time Hold Expires: voluntary Attestations NPU 2 Medical Necessity Statement*: Inpatient hospitalization is medically necessary and deemed to be the clinically appropriate intervention at this time. Medications will be adjusted and initiated as indicated.? ? The patient?s likely length of stay is 1-2 days. ? Coding Level of Care Code Acute Code for Chg Fwd Diagnoses Major depressive disorder, recurrent severe without psychotic features F33.2 Generalized anxiety disorder F41.1 Autistic spectrum disorder F84.0
[2025-02-18 13:51] VITALS: BP 136/78; PULSE 67; RESP 16; TEMP 36.6; O2SAT 96
[2025-02-18] MEDS: phenyleph-mineral oil-petrolat Oint 28 gm 1 APPLIC TOPICAL (16:13)
[2025-02-18 19:08] VITALS: BP 123/75; PULSE 78; RESP 18; TEMP 36.8; O2SAT 92
[2025-02-19 06:00] VITALS: BP 123/68; PULSE 88; RESP 16; TEMP 36.7; O2SAT 97
--- NOTE | 2025-02-19 13:05 | P.NPUDS_ITS ---
Diagnoses at Discharge Discharge Diagnosis 1. Major depressive disorder, recurrent severe without psychotic features: 2. Generalized anxiety disorder: 3. Autistic spectrum disorder: Reason for Visit Reason for Visit: mhe Brief History: History of Present Illness Bear Pat (Grace) is a 19 year old trans female who presented to the emergency department with superficial cuts to her left wrist with a cooking knife. The patient was admitted to the neuropsychiatric unit for further evaluation and treatment. The patient had reported that she had been overwhelmed due to a hostile living environment with her cousins family. She reports that she had been living with her cousin since the end of December 2024 and reports that over the past few weeks she has felt as if her cousins was telling the small children that she had to harass and torture her by yelling at her loudly and knocking on the door. She reports that she has been diagnosed with autism and has difficulties with loud noises and often feels as if she was being targeted by them. She she reports that she finally snapped and stated that she began to hit her head. She reports that she has been depressed for several months and reports a past history of depressive episodes. She reports that recently she has had low energy, decreased motivation, increased feelings of hopelessness, occasional suicidal thoughts, and depressed mood nearly every day. She reports that she has been less interested in self-care and has not been maintaining appropriate hygiene over the past few weeks. She reports that she needs to engage in therapy as she struggles with managing her anxiety. She reports at times having struggles with getting to sleep. She reports a long history of symptoms suggestive of autism including difficulties with processing, rigid henrique reotypic thinking and adherence to specific rules and rituals, difficulties with managing social cues, and a history of stereotypic rocking behavior. She had reported a long history of difficulties engaging in socially appropriate conversation with others. She reports that she has gone several days in the past without showering and reports having particular anxiety as she often obsesses about specific details. She describes often worrying about many things in general and states that it is hard to get those worries out of her mind. She reports having some struggles with being in crowds. She endorses having struggles with concentration and struggles with decision-making. She denied any history of elvis. She denied any history of psychosis. She reports that she had been traumatized by her experience in receiving psychiatric services stating that she often felt that her parents had used medication as a form of controlling her behavior. She denies any history of chronic thoughts of self injury. She endorses some symptoms of social anxiety disorder as well. Past psychiatric history: She has a history of 3 previous inpatient psychiatric hospitalizations under the age of [age] years old in [place]. She reports having been diagnosed with autism as a youngster. She had multiple suicide attempts up until the age of 12 involving overdose or attempting to hang herself at a young age. She reports several previous trials on medications with Zoloft having previously been tried recently in October 2024 under the care of Dr. Lobo. She had previously received psychotherapy use but is currently not receiving any psychotherapy. Substance abuse history: None reported Medical history: Obesity, history of COVID-19 related pneumonia Surgical history: None Allergies: No known drug allergies Current medications: None Social history: The patient had a history of speech delay as she had received speech and language therapy in elementary school. SHe was diagnosed with autism at the age of 7. She had received an IEP in high school but graduated with a regular diploma. She had one half set semester of college but dropped out. She was raised by her biological parents. Her father was before and she has a half sister and a full younger sister. She had grown up living with her biological parents. She currently lives with her cousin in [facility] and her parents live in [facility]. She has a boyfriend that she communicates with in [place] virtually. 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 She had reported experiencing some significant bullying when she was younger and reported her hospitalizations were somewhat traumatic for her although she denied any overt sexual, physical, or emotional abuse. Hospital Course Hospital Course Patient was started on Zoloft to target anxiety depression at 25 mg daily and titrated up to a dose of 50 mg at the time of discharge with a plan to increase to 75 mg after 2 weeks. During the hospitalization, the patient had routine laboratory studies which were within normal limits except for a few outliers.? Additionally, there was a general medical evaluation which was also within normal limits and revealed no new acute processes.? At the time of discharge, le thality was denied and psychosis was resolving.? Mood and anxiety were well managed.? The patient endorsed a plan to avoid all drugs of abuse and follow up with the aftercare recommendations of the treatment team.? The patient was evaluated and deemed to be absent credible lethality and had achieved the maximum benefit from an inpatient hospitalization, and so was discharged. ? Involuntary Hold Information Hold Status: Date/Time Hold Expires: voluntary Mental Status Exam MSE Comments: Patient is a 19-year-old obese trans female who appeared pleasant and cooperative on interview. She was alert and oriented to person, place, time, and situation. Her hygiene was improved today. There was no evidence of stereotypic movements noted. Her speech was monotone in quality and very jaibxm-[id number] with little inflection in her voice and normal volume. Her eye contact was fleeting today. There was evidence of mild psychomotor retardation. Her mood was described as good. Her affect was euthymic on discharge. Her thought process was linear, logical, and goal-directed. Her thought content revealed no evidence of active homicidal ideation and no suicidal ideation today. There was no evidence of delusional thinking. She did not appear to be responding to internal stimuli. Her recent and remote memory were good. Her insight is poor. Her judgment was fair. Her impulse control appeared to be improving. Discharge Data Studies Completed and Pending: Pending at discharge Category Date Time Status Drug Screen, Urin e Stat Lab 02/15/25 22:51 Uncollected Laboratory Results WBC 15.83 10^3/uL (3. 29-11.43) H 02/15/25 23:18 RBC 5.36 10^6/uL (3.8 5-5.65) 02/15/25 23:18 Hgb 14.40 g/dL (11.27 -16.99) 02/15/25 23:18 Hct 45.7 % (37-53) 02/15/25 23:18 MCV 85.3 fl (82-101) 02/15/25 23:18 MCH 26.9 pg (27-33) L 02/15/25 23:18 MCHC 31.5 g/dL (30-55) 02/15/25 23:18 RDW 12.5 % (12.1-15.1 ) 02/15/25 23:18 Plt Count 314 10^3/cmm (157 -399) 02/15/25 23:18 MPV 9.6 fL (7.4-10.4) 02/15/25 23:18 Neut % (Auto) 82.9 % 02/15/25 23:18 Lymph % (Auto) 10.6 % 02/15/25 23:18 Swisher % (Auto) 5.6 % 02/15/25 23:18 Eos % (Auto) 0.3 % 02/15/25 23:18 Baso % (Auto) 0.3 % 02/15/25 23:18 Neut # (Auto) 13.14 10^3/uL (1. 8-7.7) H 02/15/25 23:18 Lymph # (Auto) 1.7 10^3/uL (0.8- 4.8) 02/15/25 23:18 Swisher # (Auto) 0.9 10^3/uL (0.2- 0.9) 02/15/25 23:18 Eos # (Auto) 0.0 10^3/uL (0.0- 0.8) 02/15/25 23:18 Baso # (Auto) 0.1 10^3/uL (0.0- 0.1) 02/15/25 23:18 Nucleated RBC % (a uto) 0 % 02/15/25 23:18 Nucleated RBCs # 0.0 /100WBC 02/15/25 23:18 Sodium 137 mmol/L (136-1 45) 02/15/25 23:18 Potassium 3.8 mmol/L (3.5-5 .1) 02/15/25 23:18 Chloride 99 mmol/L (98-107 ) 02/15/25 23:18 Carbon Dioxide 20 mmol/L (22-29) L 02/15/25 23:18 Anion Gap 21.8 (5-19) H 02/15/25 23:18 BUN 13 mg/dL (6-20) 02/15/25 23:18 Creatinine 0.9 mg/dL (0.7-1. 2) 02/15/25 23:18 GFR Calculation 106.5 mL/min (90- 130) 02/15/25 23:18 Glucose 105 mg/dL (65-115 ) 02/15/25 23:18 Calculated Osmolal ity 284 mOsm/kg (285- 295) L 02/15/25 23:18 Calcium 9.5 mg/dL (8.5-10 .5) 02/15/25 23:18 Total Bilirubin 0.4 mg/dL (0.15-1 .2) 02/15/25 23:18 AST 20 U/L (0-40) 02/15/25 23:18 ALT 28 U/L (0-41) 02/15/25 23:18 Alkaline Phosphata se 63 U/L (40-130) 02/15/25 23:18 Total Protein 8.0 g/dL (6.6-8.7 ) 02/15/25 23:18 Albumin 4.5 g/dL (3.5-5.2 ) 02/15/25 23:18 Globulin 3.5 g/dL (1.3-4.6 ) 02/15/25 23:18 Urine Color Dark yellow (Yel low) A 02/15/25 22:32 Urine Appearance Cloudy (CLEAR) A 02/15/25 22:32 Urine pH 5.5 (5-7) 02/15/25 22:32 Ur Specific Gravit y 1.035 (1.005-1.0 30) H 02/15/25 22:32 Urine Protein 1+ (Negative) A 02/15/25 22:32 Urine Glucose (UA) Negative (Normal ) 02/15/25 22:32 Urine Ketones 1+ (Negative) H 02/15/25 22:32 Urine Blood Negative (Negati ve) 02/15/25 22:32 Urine Nitrate Negative (Negati ve) 02/15/25 22:32 Urine Bilirubin 1+ (Negative) H 02/15/25 22:32 Urine Urobilinogen 1.0 mg/dL (Negati ve) 02/15/25 22:32 Ur Leukocyte Zaira ase Negative (Negati ve) 02/15/25 22:32 Urine RBC 0-2 /hpf (0-2) 02/15/25 22:32 Urine WBC 0-5 /hpf (0-5) 02/15/25 22:32 Ur Squamous Epith Cells 0-5 /hpf (0-5) 02/15/25 22:32 Amorphous Sediment Not Reportable 02/15/25 22:32 Urine Bacteria None seen /hpf (N ONE) 02/15/25 22:32 Hyaline Casts 10.32 /lpf 02/15/25 22:32 Coarse Granular Ca sts 0-4 /lpf H 02/15/25 22:32 Urine Mucus 1+ /hpf 02/15/25 22:32 Salicylates < 0.3 mg/dL (3-10 ) L 02/15/25 23:18 Acetaminophen < 5.0 ug/mL (10-3 0) L 02/15/25 23:18 Ethyl Alcohol < 10 mg/dL (0-10) 02/15/25 23:18 Vitals: Last Vital Signs Temp 98.1 F 02/19/25 06:00 Pulse 88 02/19/25 06:00 Resp 16 02/19/25 06:00 BP 123/68 02/19/25 06:00 Pulse Ox 97 02/19/25 06:00 O2 Del Method Room Air 02/19/25 06:00 Discharge Plan Discharge Patient Disposition: Home Condition: Stable Prescriptions: New sertraline 50 mg Tablet 75 mg PO DAILY 30 Days Qty: 45 1RF Discharge Order = DC NOW: Discharge Order (Routine); Ordered 02/19/25 Ordered By: Jose Maurer Referrals: Rubina Crawford FNP-C [Primary Care Provider, Family Practice] Louis Lobo MD [Physician, Psychiatry] - 02/21/25 1:45 pm Referral Note: Follow up. Discharge Diet: Usual diet Discharge Activity: Resume usual activity Patient Instructions: Opioid Safety, Patient Portal & Eduar Instructions Discharge Attestations NPU Time Spent in Discharge Care*: less than 30 min Specific Discharge Activities: Specific discharge activities: educating patient, discussing with nurse case management/social workers/dc planners and documenting/other paperwork Status at Discharge: Cognitive status at discharge: cognitively intact , Behavioral status at discharge: cooperative , Coding Level of Care Code Acute Code for Chg Fwd Diagnoses Major depressive disorder, recurrent severe without psychotic features F33.2 Generalized anxiety disorder F41.1 Autistic spectrum disorder F84.0
[2025-02-19 14:00] VITALS: BP 148/89; PULSE 82; RESP 18; TEMP 36.9; O2SAT 94
[2025-02-19 14:23] VITALS: BP 122/68; PULSE 88; RESP 16; TEMP 36.7; O2SAT 99
== END 2025-02-19 15:30 | disposition home or self-care (01) | DRG 885 ==
LOC: ER 02-16 00:39 → NP 02-16 01:40
PROVIDERS: Admitting Provider Psychiatry & Neurology Psychiatry; Emergency Provider Student in an Organized Health Care Education/Training Program; PCP Nurse Practitioner Family; Visit Provider Psychiatry & Neurology Psychiatry
DX: F33.2 Major depressive disorder, recurrent severe without psychotic features (principal); R45.851 Suicidal ideations; Z68.42 Body mass index [BMI] 45.0-49.9, adult; F41.1 Generalized anxiety disorder; F84.0 Autistic disorder; E66.9 Obesity, unspecified
CPT/HCPCS: 36415; 80053; 80307; 81001; 85025; 90471; 90715; 93005; 97150; 97165; 99285; J9999

== ENCOUNTER → 2025-03-06 08:34 | Outpatient (BNVA) | payer OTHER, MEDICAID, SELFPAY | PROVIDERS: PCP Registered Nurse; Visit Provider Registered Nurse | DX: F33.2 Major depressive disorder, recurrent severe without psychotic features (principal) | CPT/HCPCS: 81000; 85025 ==

== ENCOUNTER 2025-03-07 15:05 | Outpatient (CLI) | payer OTHER, MEDICAID, SELFPAY ==
--- NOTE | 2025-03-07 15:11 | XRR_ITS ---
PROCEDURE INFORMATION: Exam: XR Right Knee Exam date and time: 03/07/2025 3:40 PM Age: 19 years old Clinical indication: Pain; Knee; Right; Additional info: M25.561 - pain in right knee TECHNIQUE: Imaging protocol: Radiologic exam of the right knee. Views: 3 views. COMPARISON: No relevant prior studies available. FINDINGS: Bones/joints: Osseous structures of the knee normal. No fracture. No joint effusion. Soft tissues unremarkable. Soft tissues: See Bones/joints finding. XR/XR knee RT 3V* [id number] IMPRESSION: Normal knee.
== END 2025-03-07 15:06 | disposition home or self-care (01) ==
LOC: RAD 15:07
PROVIDERS: PCP Registered Nurse; Visit Provider Registered Nurse
DX: M25.561 Pain in right knee (principal)
CPT/HCPCS: 73562

== ENCOUNTER → 2025-06-17 14:16 | Outpatient (BNVA) | payer OTHER, SELFPAY | PROVIDERS: PCP Registered Nurse; Visit Provider Registered Nurse | DX: E66.01 Morbid (severe) obesity due to excess calories (principal); Z68.43 Body mass index [BMI] 50.0-59.9, adult | CPT/HCPCS: 80053; 80061; 83036; 86003; 86008 ==